=== PATIENT | male | born 1975 | race Caucasian/White ===

== ENCOUNTER → 2023-09-24 13:32 | Outpatient (REF) | payer BC, SELFPAY | LOC: RCS 13:32 | PROVIDERS: ATTENDING PHYSICIAN Internal Medicine Interventional Cardiology; FAMILY PHYSICIAN Family Medicine | DX: R07.9 Chest pain, unspecified (principal) | CPT/HCPCS: 93017; 93350 ==

== ENCOUNTER → 2023-11-16 06:19 | Day surgery (SDC) | payer BC, SELFPAY | LOC: GI 06:19 | PROVIDERS: ATTENDING PHYSICIAN Internal Medicine Gastroenterology | DX: Z12.11 Encounter for screening for malignant neoplasm of colon (principal); K64.0 First degree hemorrhoids; R10.84 Generalized abdominal pain; R14.0 Abdominal distension (gaseous); R13.10 Dysphagia, unspecified; K22.89 Other specified disease of esophagus; K44.9 Diaphragmatic hernia without obstruction or gangrene; K31.7 Polyp of stomach and duodenum; K29.50 Unspecified chronic gastritis without bleeding; K20.80 Other esophagitis without bleeding | CPT/HCPCS: 43239; G0121; 88305; 88342 ==

== ENCOUNTER → 2024-01-05 07:36 | Outpatient (REF) | payer BC, SELFPAY | LOC: EMG 07:36 | PROVIDERS: ATTENDING PHYSICIAN Family Medicine | DX: R20.0 Anesthesia of skin (principal); R20.8 Other disturbances of skin sensation | CPT/HCPCS: 95886; 95911 ==

== ENCOUNTER → 2024-01-06 07:27 | Outpatient (REF) | payer BC, SELFPAY | LOC: EMG 07:27 | PROVIDERS: ATTENDING PHYSICIAN Family Medicine | DX: R20.0 Anesthesia of skin (principal) | CPT/HCPCS: 95886; 95910 ==

== ENCOUNTER 2024-04-25 07:58 | Emergency (ER) | payer BC, SELFPAY ==
[2024-04-25 08:08] VITALS: BP 108/85
--- NOTE | 2024-04-25 08:44 | ED.GENMED ---
History of Present Illness
General
Chief Complaint: Back Pain
Source: patient
Exam Limitations: none
Time Seen by Provider: 04/25/24 08:16
Nursing documentation reviewed up to this point in time: agreed with
History of Present Illness
History of Present Illness:
Patient is a 48-year-old male who presents to the ER for evaluation. Patient reports he has had constant pain for the past 1 year and is back and' entire torso region.' He reports pain seems to move around. At times he feels pain in his low back,
right flank, right rib area. no pain to anterior chest Recently he noticed some discomfort in his armpit and tenderness to the area. He has had some warm sensation in his hands and feet. He has been seen by his family doctor for this as well as
GI. He reports he has had colonoscopy which was normal and upper GI which showed mild reflux. He also reports he had an echo which was normal. He reports there is no diagnosis at this time. His family doctor did suggest that he follow-up with
rheumatology possible orthopedics. He came to the ER however today because over the past several nights he has not been able to sleep because the pain did not think he could wait to follow-up with rheumatology. He has not yet tried to call to make
an appointment.
He denies any associated weight loss. He has a good appetite. He denies any recent fever chills chest pain shortness of breath or rash.
Patient reports he is concerned because his father has a history of scleroderma and his mom multiple myeloma.
Past History
Past History
ED Past Medical History: None
ED Past Surgical History: None
Social History
Tobacco: Non-smoker
Alcohol: None
Personal: Single
Living: with family
Employment: Employed
Family History
Family History: Other (Father has scleroderma and coronary artery and has undergone stents, his mother has diabetes and multiple myeloma)
Review of Systems
Review of Systems
Allergies reviewed?: Yes
Other source history: family
All Other Systems: ROS reviewed and negative except as documented in HPI and ROS
Constitutional: Reports fatigue; Denies fever or chills
EENT: Reports no symptoms
Respiratory: Denies cough or trouble breathing
Cardiac: Reports no symptoms; Denies chest pain, diaphoresis, palpitations or syncope
ABD/GI: Reports no symptoms; Denies abdominal pain, nausea, vomiting or diarrhea
: Reports no symptoms
Musculoskeletal: Reports back pain and other (pain to lumbar region; right ribs)
Skin: Reports no symptoms; Denies rash
Neurological: Reports no symptoms
Hematologic/Lymphatic: Reports no symptoms
Psychiatric: Reports no symptoms
Phy Exam
General Physical Exam
General Presentation: no apparent distress
General Skin: warm
General Habitus: normal
General Mental: alert
General Hydration: appears well hydrated
Cardiovascular Exam
Cardiovascular Exam: regular rate/rhythm, no murmur and normal peripheral pulses
Pulmonary Exam
Pulmonary Exam: lungs clear, no respiratory distress and other (Normal inspection to chest no rash plan tender to right lateral rib area along the right axilla region no lymphadenopathy appreciated in the right axilla )
Gastrointestinal Exam
Gastrointestinal Exam: normal bowel sounds, non tender, soft and other (No right upper quadrant tenderness)
Neurological Exam
Neurological Exam: alert and oriented x3
Musculoskeletal Exam
Musculoskeletal Exam: full ROM
Skin Exam
Skin Exam: normal color and warm/dry
Psychiatric Exam
Psychiatric Exam: normal mood/affect
Course
Orders/Labs/Results
Orders:
Orders
04/25/24 08:44
IV Insert/Care/Rem.- Treatment PRN
Ketorolac [Toradol] 15 mg IV NOW STA
04/25/24 09:01
CRP [C-Reactive Protein] Urgent
Complete Blood Count/With Diff Urgent
Comprehensive Metabolic Panel Urgent
Lipase Urgent
Sedimentation Rate [Erythrocyte Sed Rate] Urgent
04/25/24 09:05
Ribs, Right 3 View W/PA Chest [CR Ribs-right 3 Vw W/pa Chest*] Urgent
Comment:
Reason For Exam: pain right lateral rib region
04/25/24 09:22
Urinalysis Reflex To Culture Urgent
Date Specimen was Collected: 04/25/24
Time Specimen was Collected: 09:21
04/25/24 11:23
CT Chest With Iv Contrast Urgent
Comment:
Reason For Exam: right sided pain
0.9% Sodium Chloride 1000 ml [Nss] 1,000 ml IV BOLUS
Abnormal Lab Results
04/25/24
09:01
Glucose 106 H mg/dl
(70-99)
ALT 52 H U/L
(0-50)
04/25/24 09:01
04/25/24 09:01
Vital Signs
Initial and Last Documented VS:
Initial Vital Signs
Temp Pulse Resp BP Pulse Ox
98.2 F 67 16 108/85 98
04/25/24 08:08 04/25/24 08:08 04/25/24 08:08 04/25/24 08:08 04/25/24 08:08
Last Documented Vital Signs
Temp Pulse Resp BP Pulse Ox
98.2 F 63 18 122/78 100
04/25/24 08:08 04/25/24 11:58 04/25/24 11:58 04/25/24 11:58 04/25/24 11:58
Practice Consultant consulted with Physician
Practice Consultant consulted with physician?: Yes
Name of Physician Consulted: Dr Bundy
MDM/Problems Addressed
MDM/Problems Addressed:
Patient is a 48 old male with complaints of discomfort for the past year. He reports pain varies to different areas of his back right flank torso. As documented above patient has been evaluated by cardiology, GI. He has not reflux however
colonoscopy was negative and echo was negative I did review these prior tests. He was seen here in the ER and had x-rays and CAT scans.
He is worried about certain conditions as his father has a history of scleroderma and his mom multiple myeloma.
Patient presents awake alert no acute distress he is afebrile denies any recent fever or chills. He denies any weight loss. He denies any shortness of breath or chest pain. He is tender to the lower lumbar area as well as right lateral ribs. He
does feel soreness in the right axilla. I do not appreciate any lymphadenopathy in the right axilla region.
Will check labs since patient has not had any labs for about a year and will try IV Toradol. Will check rib series as patient is mildly tender over right lateral rib area today.
Case reviewed with DR Bundy will order ct chest.
CT chest neg for any acute findings including no axillary mediastinal or hilar lymphadenopathy no suspicious osseous lesion. Sed rates and CRP are negative.
As discussed with patient there is no cause identified during ER workup for cause of pain however with persistent symptoms recommend continued outpatient follow-up having doctor and rheumatology as by his family doctor. I did [place] text
rheumatology but did not hear back yet. Patient will call rheumatology as well as family doctor.
*Radiology
Radiology exam reviewed: radiology read reviewed
*Pulse Oximetry
Patient hypoxic: no
*Critical Care Note
Total Time (30-74mins, 75-104mins- exclusive of procedures): Not Applicable
ED Attending Note
-
Portions of this chart may have been created with voice recognition software.� Occasional wrong word or��sound alike� substitutions may have occurred due to the inherent limitations of voice recognition software.
Discharge Plan
Departure
Patient Disposition: Home (Routine Discharge)
Date of Disposition: 04/25/24
Time of Disposition: 12:51
Patient with high blood pressure during this ER visit?: No
Condition: Fair
Covid-19: Not Applicable
Discharge Problem:
Pain
Prescriptions:
No Action
diclofenac potassium 50 mg tablet
50 mg PO TID Qty: 20 0RF
Referrals:
Roberth Dave, [Family Provider] -
Olivier Valles MD [Active] -
Activity Restrictions/Additional Instructions:
As discussed you were seen in the ER for pain however no cause was identified with the workup that was completed here in the ER. It Is important as discussed you continue to follow-up with family doctor as well as rheumatology as suggested. You
may take Tylenol for discomfort return if any worsening of symptoms.
Interventions
Interventions:
*Risk Screen - Suicide Last Done: 04/25/24 08:08
*General Assessment Last Done: 04/25/24 08:08
*Neglect/Abuse Screening Last Done: 04/25/24 08:08
ED- Fall Risk Assessment Last Done: 04/25/24 09:58
*ED COVID-19 Vaccine History Last Done: 04/25/24 08:53
ED-Musculoskeletal Assessment Last Done: 04/25/24 08:05
Discharge Date and Time
Print Language: [email or web address]
[2024-04-25 08:52] VITALS: BMI 28.5
[2024-04-25] MEDS: TORADOL 15 MG IV (08:58)
[2024-04-25 09:15] LABS: % Basophils 0.3 % (0-2); % Eosinophils 2.4 % (0-6); % Immature Granulocytes 0.3 % (0-0.5); % Lymphocytes 38.7 % (20.5-51.1); % Monocytes 8.4 % (1.7-9.3); % Neutrophils 49.9 % (42.2-75.2); Absolute Eosinophils 0.2 10^3/uL (0-0.7); Absolute Lymphocytes 2.5 10^3/uL (1.2-3.4); Absolute Monocytes 0.5 10^3/uL (0.1-0.6); Absolute Neutrophils 3.2 10^3/uL (1.4-6.5); Hematocrit 40.5 % (39.0-52.0); Hemoglobin 14.7 g/dL (13.0-18.0); Mean Corp Hgb Conc. 36.3 g/dL (33.0-37.0); Mean Corpuscular Hgb 29.5 pg (27.0-31.0); Mean Corpuscular Volume 81.3 fL (80.0-94.0); Mean Platelet Volume 9.5 fL (7.4-10.4); Nucleated Red Blood Cells % 0 % (-); Platelet Count 212 10^3/uL (130-400); Red Blood Cell Count 4.98 10^6/uL (4.70-6.10); White Blood Cell Count 6.3 10^3/uL (4.8-10.8)
[2024-04-25 09:30] LABS: ALT (SGPT) 52 U/L (0-50); AST (SGOT) 37 U/L (17-59); Albumin 4.4 g/dl (3.5-5.0); Alkaline Phosphatase 53 U/L (38-126); Blood Urea Nitrogen 14 mg/dl (9-20); Calcium 9.4 mg/dl (8.4-10.2); Carbon Dioxide 26 mmol/L (22-30); Chloride 105 mmol/L (98-107); Estimated Creatinine Clearance 105 ml/min; Glucose 106 mg/dl (70-99); Lipase 50 U/L (23-300); Potassium 4.3 mmol/L (3.5-5.1); Sodium 142 mmol/L (135-145); Total Protein 6.5 g/dl (6.3-8.2); eGFR > 60.00
[2024-04-25 09:32] LABS: C-Reactive Protein < 5.00 mg/L (0.0-10.00)
[2024-04-25 10:16] LABS: Urine Albumin Negative (Neg - Trace); Urine Bilirubin Negative (Negative); Urine Character Clear (Clear); Urine Color Yellow; Urine Glucose Negative (Negative); Urine Ketone Negative (Negative); Urine Leukocyte Negative (Negative); Urine Nitrite Negative (Negative); Urine Occult Blood Negative (Negative); Urine Specific Gravity 1.025 (<1.030); Urine Urobilinogen Negative (Neg - 1+)
[2024-04-25 10:19] VITALS: BP 90/62
[2024-04-25 11:55] LABS: Erythrocyte Sed Rate 4 mm/hour (0-20)
[2024-04-25] MEDS: NSS 1000 IV (11:57)
[2024-04-25 11:58] VITALS: BP 122/78
== END 2024-04-25 13:03 | disposition home or self-care (01) ==
LOC: EMR 07:58
PROVIDERS: Nurse Practitioner; EMERGENCY PHYSICIAN Emergency Medicine; FAMILY PHYSICIAN Family Medicine
DX: M54.50 Low back pain, unspecified (principal); K21.9 Gastro-esophageal reflux disease without esophagitis; Z83.3 Family history of diabetes mellitus
CPT/HCPCS: 99284; 96374; 96361; 71101; 71260; 80053; 81003; 83690; 85025; 85652; 86140; Q9967

== ENCOUNTER → 2024-08-10 08:17 | Outpatient (REF) | payer BC, SELFPAY | LOC: RAD 08:17 | PROVIDERS: ATTENDING PHYSICIAN Internal Medicine Rheumatology; FAMILY PHYSICIAN Family Medicine | DX: M35.9 Systemic involvement of connective tissue, unspecified (principal) | CPT/HCPCS: 78306; A9503 ==

== ENCOUNTER → 2024-10-20 07:45 | Outpatient (REF) | payer BC, SELFPAY | LOC: RAD 07:45 | PROVIDERS: ATTENDING PHYSICIAN Family Medicine | DX: R10.11 Right upper quadrant pain (principal); R74.8 Abnormal levels of other serum enzymes | CPT/HCPCS: 78227; A9537; J2805 ==

== ENCOUNTER → 2024-11-03 07:55 | Outpatient (REF) | payer BC, SELFPAY | LOC: MRI 3T 07:55 | PROVIDERS: ATTENDING PHYSICIAN Family Medicine | DX: R10.11 Right upper quadrant pain (principal) | CPT/HCPCS: 74183; A9575 ==

== ENCOUNTER → 2024-11-06 07:37 | Outpatient (REF) | payer BC, SELFPAY | LOC: MRI 07:37 | PROVIDERS: ATTENDING PHYSICIAN Family Medicine | DX: R10.11 Right upper quadrant pain (principal) | CPT/HCPCS: 71552; A9575 ==